=== PATIENT | female | born 1960 | race Caucasian/White ===

== ENCOUNTER → 2016-11-12 | Outpatient (CLI) | payer MEDICARE | LOC: LBRF 14:50 | DX: R30.0 Dysuria (principal) | CPT/HCPCS: 87086 ==

== ENCOUNTER → 2016-11-19 | Outpatient (CLI) | payer MEDICARE | LOC: LAB 16:01 | DX: R30.0 Dysuria (principal) | CPT/HCPCS: 81001; 87086 ==

== ENCOUNTER → 2020-10-31 | Outpatient (CLI) | payer OTHER ==
[~2020-10-31] MED LIST: B12 PO; CINNAMON500 MG PO; CRESTOR20 MG PO; GARLIC1 EAC1 PO; IBU800 MG PO; KEFLEX500 MG PO; LEVOTHYROXINE125 MCG PO; LISINOPRIL2.5 MG PO; METFORMIN HCL1000 MG PO; METOPROLOL TART25 MG PO; MULTI VIT PO; NORCO 5-325 TA1 EACH PO; PANTOPRAZOLE SO40 MG PO; TIZANIDINE HCL2 MG PO; VIT D PO; VITAMIN C500 M1 PO
== END ==
LOC: EXRD 10:05
DX: M25.542 Pain in joints of left hand (principal)
CPT/HCPCS: 73140

== ENCOUNTER → 2021-08-12 | Outpatient (CLI) | payer OTHER | LOC: EXRD 11:02 | DX: S19.9XXA Unspecified injury of neck, initial encounter (principal); M50.321 Other cervical disc degeneration at C4-C5 level | CPT/HCPCS: 72050 ==

== ENCOUNTER → 2022-01-13 | Outpatient (CLI) | payer OTHER | LOC: EXRD 09:30 | DX: M81.0 Age-related osteoporosis without current pathological fracture (principal); E55.9 Vitamin D deficiency, unspecified | CPT/HCPCS: 77080 ==